=== PATIENT | female | born 1980 | race Asian ===

== ENCOUNTER 2024-12-25 10:38 | Emergency (ER) | payer OTHER ==
[~2024-12-25] VITALS: Ht 152.4 cm; Wt 54.5 kg
[2024-12-25 10:43] VITALS: TEMP 98.2
[2024-12-25 11:16] LABS: PLATELET COUNT (AUTO) 228 K/uL (150-450); RED BLOOD CELL COUNT(AUTO) 5.03 MIL/uL (4.00-5.20); RED CELL DISTRIBUTION WIDTH 14.1 % (11.5-14.5); WHITE BLOOD COUNT (AUTO) 7.7 K/uL (4.5-11.0)
[2024-12-25 11:22] LABS: CALCIUM, TOTAL 9.0 mg/dL (8.8-10.5); CREATININE 0.45 mg/dL (0.60-1.30); GLOMERULAR FILTR. RATE CALC > 60 mL/min (>60); GLUCOSE,RANDOM 94 mg/dL (70-110); SODIUM SERUM 141 mmol/L (136-145); UREA NITROGEN, BLOOD 11 mg/dL (7-18)
[2024-12-25 11:32] LABS: TROPONIN I-HIGH SENSITIVITY 4 ng/L (<51)
[2024-12-25] MEDS: OxyCODONE HCL/ACETAMINOPHEN 5-325 MG TABLET PO ONE (14:19)
[2024-12-25] MEDS ORDERED: PERCT PO (16:06)
[2024-12-25 16:20] VITALS: BP 116/72; PULSE 86; RESP 18; O2SAT 98
== END 2024-12-25 16:24 | disposition home or self-care (01) ==
LOC: EMS 10:42
DX: R07.89 Other chest pain (principal); G43.909 Migraine, unspecified, not intractable, without status migrainosus; Z98.890 Other specified postprocedural states; Z88.6 Allergy status to analgesic agent
CPT/HCPCS: 71045; 80048; 83880; 84484; 85025; 93005; 99285; 36415-L1; 36415-TC